=== PATIENT | female | born 1960 | race Caucasian/White ===

== ENCOUNTER 2018-02-23 16:03 | Outpatient (CLI) | payer OTHER | END 2018-02-23 16:04 | disposition home or self-care (01) | LOC: BICMAMMO 16:03 | PROVIDERS: ATTEND Physician Assistant | DX: Z12.31 Encounter for screening mammogram for malignant neoplasm of breast (principal) | CPT/HCPCS: 77063; 77067 ==

== ENCOUNTER 2022-04-15 12:00 | Outpatient (CLI) | payer OTHER | END 2022-04-15 12:01 | disposition home or self-care (01) | LOC: BICMAMMO 12:00 | PROVIDERS: ATTEND Physician Assistant | DX: Z12.31 Encounter for screening mammogram for malignant neoplasm of breast (principal) | CPT/HCPCS: 77063; 77067 ==

== ENCOUNTER 2023-05-19 10:53 | Outpatient (CLI) | payer OTHER | END 2023-05-19 10:54 | disposition home or self-care (01) | LOC: BICMAMMO 10:53 | PROVIDERS: ATTEND Physician Assistant | DX: Z12.31 Encounter for screening mammogram for malignant neoplasm of breast (principal) | CPT/HCPCS: 77063; 77067 ==

== ENCOUNTER 2025-05-24 08:31 | Outpatient (CLI) | payer MEDICARE | END 2025-05-24 08:32 | disposition home or self-care (01) | LOC: BICMAMMO 08:31 | PROVIDERS: ATTEND Family Medicine | DX: Z12.31 Encounter for screening mammogram for malignant neoplasm of breast (principal) | CPT/HCPCS: 77063; 77067 ==